=== PATIENT | female | born 1965 | race Caucasian/White ===

== ENCOUNTER 2022-03-26 21:12 | Emergency (ER) | payer BC ==
[~2022-03-26] VITALS: Ht 175.3 cm; Wt 65.9 kg
[2022-03-26 21:21] VITALS: BP 170/102
--- NOTE | 2022-03-26 22:48 | NUR ---
PT HAS LET WRIST SWELLING AND OBVIOUS DEFORMITY FROM GROUND LEVEL FALL THAT OCCURED YESTERDAY. PENDING XR RESULTS AND FURTHER ORDERS. PT HAS LIMITED ROM DUE TO PAIN/ DEFORMITY BUT GOOD DISTAL CAP REFIL.
[2022-03-26] MEDS ORDERED: HYDROcodone/acetaminophen 5mg/325mg tablet PO ONE (23:10)
[2022-03-26] MEDS ORDERED: IBUP-1984 PO (23:34)
[2022-03-26] MEDS ORDERED: HYDR-3965 PO (23:34)
== END 2022-03-26 23:53 | disposition home or self-care (01) ==
LOC: ER 21:14
DX: S52.614A Nondisplaced fracture of right ulna styloid process, initial encounter for closed fracture (principal); M25.531 Pain in right wrist; Z79.899 Other long term (current) drug therapy; W18.49XA Other slipping, tripping and stumbling without falling, initial encounter; Y93.01 Activity, walking, marching and hiking; Y92.89 Other specified places as the place of occurrence of the external cause; Y99.8 Other external cause status
CPT/HCPCS: 29125; 73110; 73130; 99284